=== PATIENT | male | born 1990 | race Caucasian/White ===

== ENCOUNTER 2016-11-11 19:34 | Observation (INO) | payer MEDICAID ==
[~2016-11-11] VITALS: Ht 165.1 cm; Wt 63.5 kg
[2016-11-11 20:16] LABS: DAU SCREEN DISCLAIMER
[2016-11-11 20:18] LABS: BLOOD UREA NITROGEN 12 mg/dL (7-18)
[2016-11-11 20:22] LABS: ACETAMINOPHEN < 2 mcg/mL (10-30)
[2016-11-11] MEDS ORDERED: SPIR100T2 PO (21:52)
[2016-11-11] MEDS ORDERED: ESTR2TAB PO (21:52)
[2016-11-11] MEDS ORDERED: POLYETHYLENE GLYCOL 17 GM PACKET PO PRN (23:00)
[2016-11-11] MEDS ORDERED: BISACODYL 10 MG SUPP PR PRN (23:00)
[2016-11-11] MEDS ORDERED: DOCUSATE 100 MG CAPSULE PO PRN (23:00)
[2016-11-12 08:02] VITALS: BP 94/59
[2016-11-12] MEDS: ESTRADIOL 2 MG TABLET PO SCH ×2 (08:43→14:13)
[2016-11-12] MEDS ORDERED: SPIRONOLACTONE 100 MG TABLET PO SCH (09:00)
[2016-11-12] MEDS ORDERED: ONDANSETRON ODT 4 MG PO PRN (13:00)
== END 2016-11-12 15:15 ==
LOC: ED 21:53 → EDIP 21:54 → INTOOBSV 21:54 → ED 22:13 → 3E 23:19
PROVIDERS: ADMIT Internal Medicine; ATTEND Internal Medicine
DX: R45.851 Suicidal ideations (principal); R55 Syncope and collapse; F32.9 Major depressive disorder, single episode, unspecified; F64.9 Gender identity disorder, unspecified; Z91.5 Personal history of self-harm
CPT/HCPCS: 36415; 80048; 80307; 80329; 82040; 85025; 93306; 99285; G0378; G0480